=== PATIENT | female | born 1950 | race Caucasian/White ===

== ENCOUNTER 2017-11-27 06:41 | Day surgery (SDC) | payer MEDICARE ==
[2017-11-25 16:20] VITALS: BP 113/55
[2017-11-25 16:24] LABS: BASOPHILS % (AUTO) 0.6 % (0.0-5.0); EOSINOPHILS % (AUTO) 2.5 % (0.0-8.0); HEMATOCRIT 28.3 % (36-48); LYMPHOCYTES % (AUTO) 10.3 % (21.0-51.0); MEAN CORPUSCULAR HEMOGLOBIN 21.2 pg (27.0-33.0); MEAN CORPUSCULAR HGB CONC 30.6 g/dL (32.0-36.0); MEAN CORPUSCULAR VOLUME 69.2 fL (79-99); MONOCYTES % (AUTO) 17.3 % (3.0-13.0); NEUTROPHILS % (AUTO) 69.3 % (40.0-77.0); PLATELET COUNT (AUTO) 526 K/uL (130-400); RED BLOOD CELL COUNT(AUTO) 4.09 MIL/uL (4.00-5.50); RED CELL DISTRIBUTION WIDTH 17.7 % (11.0-15.5); WHITE BLOOD COUNT (AUTO) 9.3 K/uL (4.8-10.8)
[2017-11-25 17:34] LABS: CREATININE 0.6 mg/dL (0.5-1.5); POTASSIUM 4.3 mmol/L (3.5-5.1)
[2017-11-27] VITALS (18 sets, daily range): BP systolic 91–124; BP diastolic 45–65
[~2017-11-27] VITALS: Ht 144.8 cm; Wt 63.5 kg
[~2017-11-27 06:41] MED LIST: ADVAIR DISKUS IH; ALBUTEROL INHALER IH; BACL10TA PO; CETI10TA57 PO; FAMO20TA8 PO; FLUT16H NASAL; FOLIC ACID PO; L.AC1CAP6 PO; LEVO100T12 PO; LISI2.5T2 PO; MITOMYCIN 40 MG VIAL SCH; MONT10TA24 PO; MULT-1205 PO; NORT25CA3 PO; VERA-6 PO
[2017-11-27] MEDS ORDERED: LACTATED RINGERS 1000ML 1,000 ML IV ONE (07:41)
[2017-11-27] MEDS: CEFTRIAXONE SODIUM 1 GM IVP ONE ×2 (08:26→10:15)
[2017-11-27] MEDS ORDERED: LIDOCAINE PF 2% 5ML ABBOJECT ONE (08:54)
[2017-11-27] MEDS ORDERED: DEXAMETHASONE SOD PHOSPHATE 10MG/ML 1ML VIAL ONE (08:54)
[2017-11-27] MEDS ORDERED: PROPOFOL 10 MG/ML 20ML VIAL IV ONE (08:54)
[2017-11-27] MEDS ORDERED: EPHEDRINE SULFATE 50 MG/ML AMPULE ONE (08:54)
[2017-11-27] MEDS ORDERED: FENTANYL CITRATE PF 50 MCG/1 ML 2ML VIAL ONE ×2 (08:55→11:49)
[2017-11-27] MEDS ORDERED: ROCURONIUM BROMIDE 10MG/1ML 5ML VL ONE (09:00)
[2017-11-27] MEDS ORDERED: NEOSTIGMINE 5MG/5ML SYR IV ONE (09:00)
[2017-11-27] MEDS ORDERED: GLYCOPYRROLATE 1 MG/5 ML SYRINGE ONE (09:00)
[2017-11-27] MEDS ORDERED: FAMOTIDINE/PF 20 MG/2 ML VIAL IV ONE (09:51)
[2017-11-27] MEDS ORDERED: MITOMYCIN 40 MG VIAL ONE (09:58)
[2017-11-27] MEDS ORDERED: IPRATROPIUM/ALBUTEROL SULFATE 3 ML SOLUTION IH ONE (11:38)
[2017-11-27] MEDS ORDERED: MIDAZOLAM HCL 1 MG/ML 2ML VIAL ONE (11:49)
[2017-11-27] MEDS ORDERED: PHENAZOPYRIDINE HCL 200 MG TABLET ONE (13:05)
== END 2017-11-27 13:16 | disposition home or self-care (01) ==
LOC: DAH 06:41
PROVIDERS: ATTEND Urology
DX: C67.5 Malignant neoplasm of bladder neck (principal); D09.0 Carcinoma in situ of bladder; C67.2 Malignant neoplasm of lateral wall of bladder; N30.20 Other chronic cystitis without hematuria; K21.9 Gastro-esophageal reflux disease without esophagitis; E03.9 Hypothyroidism, unspecified; G82.20 Paraplegia, unspecified; I10 Essential (primary) hypertension; D64.9 Anemia, unspecified; M81.0 Age-related osteoporosis without current pathological fracture; Z79.899 Other long term (current) drug therapy; Z88.6 Allergy status to analgesic agent; Z88.8 Allergy status to other drugs, medicaments and biological substances; Z91.013 Allergy to seafood; Z87.891 Personal history of nicotine dependence
CPT/HCPCS: 36415 ×2; 52235; 80048; 85025; 86850; 86900; 86901; 88305; 94640; A4218; A4344; A4358; A4510; A4600; J0696; J1100; J2001; J2250; J2704; J2710; J3010 ×2; J3490 ×4; J7120 ×2; J9280 ×2